=== PATIENT | male | born 1995 | race African-American/Black ===

== ENCOUNTER 2018-06-13 13:20 | Day surgery (SDC) | payer OTHER ==
[2018-06-13] MEDS ORDERED: PIPERACILLIN/TAZOBACTAM 3.375 GM in SODIUM CHLORIDE 0.9% MINIBAG 100 ML IV STA (13:31)
--- NOTE | 2018-06-13 13:31 | ED Physician Documentation ---
PD HPI ABD PAIN - Stated complaint Stated Complaint: RLQ PX - Chief complaint Chief Complaint: Abd Pain - History obtained from History obtained from: Patient - History of Present Illness Timing - onset: How many days ago (4) Timing - duration: Days (4) Timing - details: Gradual onset Pain level max: 6 Pain level now: 6 Quality: Aching, Pain Location: All over / everywhere Improved by: Laying still, Vomiting Worsened by: Moving, Breathing Associated symptoms: Nausea, Vomiting. No: Fever, Hematemesis, Diarrhea, Constipation, Melena, Hematochezia Similar symptoms before: Has not had sx before Recently seen: Other (sent from [facility] after outpatient CT reportedly shows acute appendicitis with possible early periappendiceal abscess.) Review of Systems Ten Systems: 10 systems reviewed and negative Constitutional: denies: Fever, Chills Nose: denies: Rhinorrhea / runny nose, Congestion Respiratory: denies: Cough GI: denies: Vomiting, Diarrhea, Hematemesis, Bloody / black stool : denies: Dysuria Skin: denies: Rash Musculoskeletal: denies: Neck pain, Back pain Neurologic: denies: Headache PD PAST MEDICAL HISTORY - Past Medical History Past Medical History: No - Past Surgical History Past Surgical History: No - Present Medications Home Medications: Ambulatory Orders Medication Instructions Recorded Confirmed No Known Home Medications [No 06/13/18 06/13/18 Known Home Medications] - Allergies Allergies/Adverse Reactions: Allergies Allergy/AdvReac Type Severity Reaction Status Date / Time No Known Drug Allergies Allergy Verified 06/13/18 13:26 - Living Situation Living Situation: reports: With family Living Arrangement: reports: At home - Social History Does the pt smoke?: No Does the pt have substance abuse?: No - Family History Family history: reports: Non contributory PD ED PE NORMAL - Vitals Vital signs reviewed: Yes - General General: Alert and oriented X 3, No acute distress - HEENT HEENT: PERRL - Neck Neck: Supple, no meningeal sign - Cardiac Cardiac: RRR, Strong equal pulses - Respiratory Respiratory: No respiratory distress, Clear bilaterally - Abdomen Abdomen: Soft, Non distended, Other (TTP RLQ at Mcburney's point. + rebound and guarding. ) - Derm Derm: Warm and dry - Extremities Extremities: No edema - Neuro Neuro: Alert and oriented X 3 - Psych Psych: Normal mood, Normal affect Results - Vitals Vitals: Vital Signs - 24 hr 18 18 06/13/18 13:26 16:00 16:05 Temperature 36.5 C 36.4 C L Heart Rate 82 Respiratory 18 8 L 13 Rate Blood Pressure 134/83 H 126/66 142/47 H O2 Saturation 100 100 100 18 18 06/13/18 16:10 16:15 16:20 Temperature Heart Rate Respiratory 14 19 16 Rate Blood Pressure 135/60 H 137/56 H 131/44 H O2 Saturation 100 100 99 06/13/18 17:00 Temperature 37.2 C Heart Rate Respiratory 18 Rate Blood Pressure 117/52 L O2 Saturation 100 Oxygen O2 Source Room air PD MEDICAL DECISION MAKING - ED course Complexity details: reviewed results, re-evaluated patient, considered differential, d/w patient, d/w travel consultant (1330 - Dr. Pete Rice, surgery and will come eval the pt. ) ED course: Patient is a 23-year-old male with acute appendicitis. Given Zosyn. CT scan was obtained from the [facility] and does not show any evidence of abscess or perforation. Dr. Rice will take to the operating room. This document was made in part using voice recognition software. While efforts are made to proofread this document, sound alike and grammatical errors may occur. - Sepsis Event Vital Signs: Vital Signs - 24 hr 06/13/1818 06/13/18 13:26 16:00 16:05 Temperature 36.5 C 36.4 C L Heart Rate 82 Respiratory 18 8 L 13 Rate Blood Pressure 134/83 H 126/66 142/47 H O2 Saturation 100 100 100 06/13/18 06/13/18 06/13/18 16:10 16:15 16:20 Temperature Heart Rate Respiratory 14 19 16 Rate Blood Pressure 135/60 H 137/56 H 131/44 H O2 Saturation 100 100 99 06/13/18 17:00 Temperature 37.2 C Heart Rate Respiratory 18 Rate Blood Pressure 117/52 L O2 Saturation 100 Oxygen O2 Source Room air Departure - Departure Disposition: ED Transfer to [facility] Clinical Impression: Appendicitis Qualifiers: Appendicitis type: acute appendicitis Acute appendicitis type: with localized peritonitis Qualified Code(s): K35.3 - Acute appendicitis with localized peritonitis Condition: Stable Discharge Date/Time: 06/13/18 14:49
[2018-06-13] MEDS ORDERED: MORPHINE 2 MG/ML CARPUJECT IVP STA (13:36)
[2018-06-13] MEDS ORDERED: SODIUM CHLORIDE 0.9% 1,000 ML IV ONE (13:36)
--- NOTE | 2018-06-13 14:04 | ANESTHESIA ---
Pre-Anesthesia VS, & Labs - Diagnosis acute appendicitis - Procedure Laparoscopic Appendectomy Vital Signs: Temp Pulse Resp BP Pulse Ox 36.5 C 82 18 134/83 H 100 06/13/18 13:26 06/13/18 13:26 06/13/18 13:26 06/13/18 13:26 06/13/18 13:26 Height 5 ft 7 in Weight (kg) 78.018 kg Body Mass Index 26.9 - NPO >8 hours Home Medications and Allergies Allergies/Adverse Reactions: Allergies Allergy/AdvReac Type Severity Reaction Status Date / Time No Known Drug Allergies Allergy Verified 06/13/18 13:26 Anes History & Medical History - Anesthetic History Family history of Anesthesia Complications: Denies - Medical History Cardiovascular: reports: None Pulmonary: reports: None Gastrointestinal: reports: None Urinary: reports: None Neuro: reports: None Smoking Status: Never smoker Psychosocial: reports: No issues indicated Exam General: Alert Neck Mobility: Normal Mallampati classification: II Thyromental Distance: greater than 6 cm Respiratory: Lungs clear Cardiovascular: Regular rate Mental/Cognitive Status: Alert/Oriented X3 Plan Anesthesia Type: General Consent for Procedure(s) Verified and Reviewed: Yes Code Status: Attempt Resuscitation ASA classification: 1-Healthy patient Is this case an emergency?: Yes
--- NOTE | 2018-06-13 14:16 | CONSULTATION NOTE ---
Referring Provider Name of Referring Provider:: [facility]; Dr. Wood Consult Date: 06/13/18 Chief Complaint - Chief Complaint Chief Complaint: abd pain History of Present Illness - Admitted From Admitted From:: ER - History Obtained From Records Reviewed: yes History obtained from: pt Exam Limitations: none - History of Present Illness HPI Comment/Other: 23 yo male with 4 day hx of constant steady nonradiating RLQ abd pain, associated with N/V/D, nonbloody in nature, without fever/chills, urinary or respiratory sx. No hx previous similar sx, no recent wt loss, neg FH GI tumors or appendicitis. Was seen at [facility] where a CT of abd/pelvis reportedly showed an abnormally thickened appendix with an appendicolith in its tip, no periappendiceal abscess or fluid, mildly dilated terminal ileum c/w ileus, no other abnormalities. Labs were notable for a nl WBC count with a left shift. CMP was satisfactory. He was sent to [facility] for surgical consultation. History - Past Medical History Cardiovascular: reports: None Respiratory: reports: None Neuro: reports: None Endocrine/Autoimmune: reports: None : reports: None HEENT: reports: None Psych: reports: None Musculoskeletal: reports: None Derm: reports: None (neg for GI tumors, appendicitis) MRSA Hx?: No - Family & Social History Living arrangement: At home Living Situation: With family - POLST Patient has POLST: No Meds/Allgy - Home Medications Home Medications: Ambulatory Orders Medication Instructions Recorded Confirmed No Known Home Medications [No 06/13/18 06/13/18 Known Home Medications] - Allergies Allergies/Adverse Reactions: Allergies Allergy/AdvReac Type Severity Reaction Status Date / Time No Known Drug Allergies Allergy Verified 06/13/18 13:26 Review of Systems - Constitutional Constitutional: denies: Fatigue, Fever, Chills, Weight gain, Weight loss - Cardiovascular Cariovascular: denies: Irregular heart rate, Chest pain - Respiratory Respiratory: denies: Cough, Sputum production - Gastrointestinal Gastrointestinal: reports: Abdominal pain, Diarrhea, Change in bowel habits, Nausea, Vomiting. denies: Rectal bleeding, Black stools, Bloody stools, Froilan blood emesis, Coffee grounds emesis, Reflux/heartburn - Genitourinary Genitourinary: denies: Dysuria, Frequency - Hematologic/Lymphatic Hematologic/Lymphatic: denies: Blood clots, Bleeding tendencies - All Other Systems All Other Systems: reports: Reviewed and negative Exam - Vital Signs Reviewed Vital Signs: Yes Vital Signs: Vital Signs x48h Temp Pulse Resp BP Pulse Ox 06/13/18 13:26 36.5 C 82 18 134/83 H 100 - Physical Exam General Appearance: positive: Moderate distress Eyes Bilateral: positive: Normal inspection, PERRL, EOMI, Conjunctivae nml, No scleral icterus ENT: positive: ENT inspection nml, Pharynx nml, No signs of dehydration Neck: positive: Nml inspection, No JVD, Trachea midline. negative: Lymphadenopathy (R), Lymphadenopathy (L) Respiratory: positive: Chest non-tender, No respiratory distress, Breath sounds nml Cardiovascular: positive: Regular rate & rhythm, No murmur, No gallop Peripheral Pulses: positive: 2+ Abdomen: positive: Nml bowel sounds, Tenderness (Right sided tenderness, guarding, and rebound, maximal in RLQ; no generalized peritoneal signs), Guarding, Rebound. negative: Hepatomegaly, Splenomegaly, Mass Skin: positive: Color nml, Warm, Dry Extremities: positive: Non-tender, Full ROM, No pedal edema. negative: Calf tenderness Neurologic/Psychiatric: positive: Oriented x3 Conclusion/Plan - Diagnosis Diagnosis: Acute abdomen, likely due to acute appendicitis. No evidence of complicated disease on CT exam from [facility]. - Lab Results Lab results reviewed: Yes - Diagnostic Imaging Results Diagnostic Imaging Results: positive: Final report reviewed Diagnostic Imaging Results Comments: See HPI
[2018-06-13] MEDS ORDERED: BUPIVACAINE 0.5%-EPI 1:200000 PF 30 ML VIAL ONE (14:33)
[2018-06-13] MEDS ORDERED: ROCURONIUM 50 MG/5 ML VIAL IVP ONE (14:55)
[2018-06-13] MEDS ORDERED: fentaNYL 100 MCG/2 ML VIAL IVP ONE (14:55)
[2018-06-13] MEDS ORDERED: ACETAMINOPHEN 1,000 MG/100 ML 100 ML IV ONE (14:55)
[2018-06-13] MEDS ORDERED: MIDAZOLAM 2 MG/2 ML VIAL IVP ONE (14:55)
[2018-06-13] MEDS ORDERED: LIDOCAINE-MPF 2% 5 ML VIAL IM ONE (14:55)
[2018-06-13] MEDS ORDERED: DEXAMETHASONE 4 MG/ML VIAL IVP ONE (14:55)
[2018-06-13] MEDS ORDERED: ONDANSETRON 4 MG/2 ML VIAL IVP ONE (14:55)
[2018-06-13] MEDS ORDERED: LACTATED RINGERS 1,000 ML IV ONE (15:05)
[2018-06-13] MEDS ORDERED: BUPIVACAINE 0.5%-EPI 1:200000 PF 30 ML VIAL SUBQ ONE ×2 (15:16)
[2018-06-13] MEDS ORDERED: KETOROLAC 30 MG/ML VIAL ONE (16:16)
[2018-06-13 17:23] VITALS: BP 117/52
--- NOTE | 2018-06-19 16:18 | OPERATIVE REPORT ---
DATE OF SERVICE: 06/13/2018 Physician: Pete Rice MD PREOPERATIVE DIAGNOSIS: Acute appendicitis. POSTOPERATIVE DIAGNOSIS: Acute appendicitis. PROCEDURE PERFORMED: Laparoscopic appendectomy. ANESTHESIA: General endotracheal. SURGEON: Pete Rice MD. ESTIMATED BLOOD LOSS: Minimal. DRAINS: None. SENIOR INTEGRATION ARCHITECT: None. COMPLICATIONS: None. FINDINGS: Laparoscopy revealed a mildly indurated, erythematous and enlarged appendix in intraperito jason location with mild inflammatory reaction of the surrounding fatty tissues with no gross evidence of perforation. The visualized portion of the colon, terminal ileum, liver, stomach and gallbladder , otherwise appeared normal. There was no significant free fluid. INDICATIONS: Patient is a 23-year-old male with 4-day history of worsening right lower quadrant pain associated with right lower quadrant tenderness and a CT scan showing an abnormally thickened append ix consistent with acute appendicitis. He is felt to be suffering from acute appendicitis, advised t o undergo laparoscopic appendectomy for definitive surgical treatment. TECHNIQUE: After informed consent, patient was taken to the operating room where he was placed under general endotracheal anesthesia. Preoperative preparation included administration of 3.375 grams of Zosyn intravenously, administered therapeutically prior to the surgery. Sequential calf compression boots were applied. His abdomen was clipped and prepared with ChloraPrep solution and draped in the usual sterile fashion. A transverse incision made along the inferior edge of the umbilicus and palacios ied down through the layers of the abdominal wall until the peritoneum was identified and entered sha rply. A 10 mm [place] cannula was inserted, and pneumoperitoneum achieved with carbon dioxide. A 30- degree 10 mm [place] telescope was inserted, and laparoscopy carried out with findings as noted above . Two additional 5 mm ports were placed in the lower midline and left lower quadrant. Instruments w ere passed. The appendix was exposed and grasped and its mesentery divided with the LigaSure device. Once the base of the appendix was fully mobilized, the 45 mm linear cutting stapling device was use d to ligate and divide the appendix at its junction with the cecal base. The appendix was placed in an organ retrieval bag, extracted, and sent for pathologic evaluation. After hemostasis was assured, the right upper quadrant was copiously irrigated with saline solution, following which instruments and cannulas removed under direct vision. Pneumoperitoneum was allowed t o escape, and the incisions were closed in layers using 0 Vicryl to reapproximate the midline fascia at the umbilicus, followed by 4-0 Monocryl subcuticular skin closure in all the port sites, followed by Dermabond. Anesthesia was terminated, and patient transferred to the recovery room in satisfactor y condition. Sponge and needle counts were correct x2, and no drains were used. TD: 06/19/2018 13:00
== END 2018-06-13 13:46 | disposition home or self-care (01) ==
LOC: ED 13:20 → SDS 13:45
PROVIDERS: ATTEND Internal Medicine Gastroenterology
PROC: 0DTJ4ZZ Resection of Appendix, Percutaneous Endoscopic Approach (ICD-10-PCS; principal; 2018-06-13 14:30)
DX: K35.80 Unspecified acute appendicitis (principal)
CPT/HCPCS: 44970; 96374; 99283; 99284; J0131; J7120; 80053; 83690; 85025

== ENCOUNTER 2018-06-28 14:28 | Outpatient (CLI) | payer OTHER ==
[2018-06-28 14:45] LABS: BILIRUBIN,URINE NEGATIVE (NEGATIVE); GLUCOSE, URINE (UA) NEGATIVE (NEGATIVE); KETONES,URINE (UA) NEGATIVE (NEGATIVE); LEUKOCYTE ESTERASE, URINE NEGATIVE (NEGATIVE); NITRITE,URINE NEGATIVE (NEGATIVE); OCCULT BLOOD,URINE NEGATIVE (NEGATIVE); PROTEIN,URINE NEGATIVE (NEGATIVE); UROBILINOGEN,URINE 0.2 (NORMAL) E.U./dL (NORMAL)
[2018-06-28 14:52] LABS: BACTERIA,URINE None Seen /HPF (None Seen); CLARITY,URINE CLEAR (CLEAR); RBC,URINE None Seen /HPF (0-5); SQUAMOUS EPITHELIAL CELL,UR NONE SEEN (<= Few)
== END 2018-06-28 14:29 | disposition home or self-care (01) ==
LOC: LAB 14:28
PROVIDERS: ATTEND Internal Medicine Gastroenterology
DX: R30.0 Dysuria (principal)
CPT/HCPCS: 81001; 87086